=== PATIENT | female | born 1955 ===

== ENCOUNTER 2017-07-21 11:34 | Emergency (ER) | payer OTHER ==
[2017-07-21 12:09] VITALS: TEMP 98.3; BMI 21.2
--- NOTE | 2017-07-21 15:29 | PDOC ---
History of Present Illness <Jatinder Key - Last Filed: 07/21/17 16:18> - General History Source: Care Provider Exam Limitations: No Limitations - History of Present Illness Initial Comments: 07/21/17 16:25 Patient is a 62 year old female, from [facility], with a significant past medical history of seizures who presents to the ED s.p seizure that occurs just prior to ED arrival. As per care home staff, patient experienced an episode of seizure while in the opthamologist office prompting the [facility] to bring the patient into the ED for further evaluation. As per patient has not experienced a witness seizure since 2012. She reports patient was diagnosed with the flu earlier last week and just recently finished her prescription of tamiflu yesterday afternoon. Denies chest pain, Sob. Denies nausea, vomiting. Denies urinary incontinence.Denies fevers, chills. Denies trauma. Denies any other symptoms. Allergies: Haldol, Atterax Social history: Lives at [facility]. No smoking. No alcohol. No illicit drugs. Surgical history: None PMD: Dr. Klaus May. <Lino Mike - Last Filed: 07/21/17 16:25> - General Chief Complaint: Seizure Stated Complaint: SEIZURE Time Seen by Provider: 07/21/17 12:08 Past History - Past Medical History Cardiac Disorders: Yes (mi 2012) COPD: No Seizures: Yes Other medical history: mild intellectual disability, multiple fallliver cirrohis - Surgical History Cholecystectomy: Yes - Suicide/Smoking/Psychosocial Hx Smoking History: Unknown if ever smoked <Jatinder Key - Last Filed: 07/21/17 16:18> <Lino Mike - Last Filed: 07/21/17 16:25> - Past Medical History Allergies/Adverse Reactions: Allergies Allergy/AdvReac Type Severity Reaction Status Date / Time haloperidol [From Haldol] Allergy Unknown Verified 07/21/17 12:06 hydroxyzine [From Atarax] Allergy Verified 07/21/17 12:06 Home Medications: Ambulatory Orders Acetaminophen [Tylenol] 325 mg PO QID PRN 07/21/17 Aspirin 81 mg PO DAILY 07/21/17 Carbidopa/Levodopa [Carbidopa-Levodopa 25-100 Tab] 1 tab PO TID 07/21/17 Cholecalciferol (Vitamin D3) [Vitamin D3 -] 1,000 unit PO DAILY 07/21/17 Cyproheptadine [Periactin -] 4 mg PO BID 07/21/17 Denosumab [Prolia -] 60 mg IM UTDICT 07/21/17 Docusate Sodium [Colace] 100 mg PO DAILY 07/21/17 Guaifenesin [Mucinex] 600 mg PO BID 07/21/17 Lamotrigine [Lamictal] 300 mg PO BID 07/21/17 Oxybutynin [Oxytrol] 10 mg PO BID 07/21/17 Simvastatin [Zocor] 10 mg PO HS 07/21/17 Topiramate [Topamax] 100 mg PO BID 07/21/17 Review of Systems - Review of Systems Able to Perform ROS?: Yes Comments:: 07/21/17 16:25 ROS: A complete review of 10 out of 10 review of systems is taken and is negative apart from what is previously mentioned below and in the HPI. <Lino Mike - Last Filed: 07/21/17 16:25> *Physical Exam - Vital Signs Last Vital Signs Temp Pulse Resp BP Pulse Ox 98.3 F 79 20 115/63 97 07/21/17 11:35 07/21/17 13:38 07/21/17 13:38 07/21/17 13:38 07/21/17 13:38 <Jatinder Key - Last Filed: 07/21/17 16:18> - Vital Signs Last Vital Signs Temp Pulse Resp BP Pulse Ox 98.3 F 79 20 115/63 97 07/21/17 11:35 07/21/17 13:38 07/21/17 13:38 07/21/17 13:38 07/21/17 13:38 - Physical Exam Comments: 07/21/17 16:25 Vitals: Triage Vital signs reviewed General Appearance: no acute distress, well nourished well developed Head: Atraumatic Eyes: Pupils equal reactive round, extraocular movement intact Ears: TMs normal bilaterally Nose: Nares patent bilaterally; no nasal congestion Throat: Posterior oropharynx without erythema, mucous membranes moist Neck: Supple; No Nuchal rigidity Chest Wall: Nontender Cardiac: Regular rate and rhythm, no murmurs, no rubs, no gallops Lungs: Clear to auscultation bilateral, good air movement bilaterally Abdomen: Soft, non distended, normal bowel sounds, non tender to palpation Genitourinary: Rectal: Exam deferred Extremities: Full range of motion to all extremities, no cyanosis, clubbing, or edema Skin: Warm and dry, no rashes or lesions, no rash, no petechiae Neuro:Cranial Nerves 2-12 grossly intact, Strength intact to all extremities, Sensation intact to all extremities Psych: Normal mood, normal affect <Lino Mike - Last Filed: 07/21/17 16:25> ED Treatment Course - LABORATORY CBC & Chemistry Diagram: 07/21/17 15:00 07/21/17 15:00 <Jatinder Key - Last Filed: 07/21/17 16:18> - LABORATORY CBC & Chemistry Diagram: 07/21/17 15:00 07/21/17 15:00 - ADDITIONAL ORDERS Additional order review: Laboratory Results 07/21/17 15:00 Sodium 141 Potassium 4.4 Chloride 102 Carbon Dioxide 28 Anion Gap 11 BUN 18 Creatinine 0.7 Random Glucose 116 H Calcium 9.2 07/21/17 15:00 RBC 3.16 L MCV 92.5 MCHC 33.1 RDW 13.4 MPV 7.3 L Neutrophils % 83.3 H Lymphocytes % 9.3 Monocytes % 6.4 Eosinophils % 0.8 Basophils % 0.2 <Lino Mike - Last Filed: 07/21/17 16:25> Medical Decision Making - Medical Decision Making 07/21/17 16:18 62 years old multiple medical problems presents to the emergency department with generalized tonoclonic seizure. No changes patient medications recently was diagnosed with the flu Observe for [address] had labs all unremarkable diagnosis is breakthrough seizure likely secondary to recent flu Patient's care home has been provided with copy of CAT scan results and lab results and advised to follow up with neurology this week to will return to the emergency department for any severe returning symptoms or for any concerns. <Jatinder Key - Last Filed: 07/21/17 16:18> *DC/Admit/Observation/Transfer - Discharge Dispostion Admit: No <Jatinder Key - Last Filed: 07/21/17 16:18> - Attestations Scribe Attestion: 07/21/17 16:25 Documentation prepared by Lino Mike, acting as medical certification specialist for Jatinder Kye MD, /DO. <Lino Mike - Last Filed: 07/21/17 16:25> Diagnosis at time of Disposition: Seizure - Patient Instructions Printed Discharge Instructions: Seizure Disorder -- Adult Additional Instructions: Take all medications as prescribed. Follow-up with her neurologist this week. Return to the emergency department for any severe worsening symptoms or for any concerns.
[2017-07-21 15:32] LABS: ANION GAP 11 (8-16); BLOOD UREA NITROGEN 18 mg/dL (7-18); CALCIUM 9.2 mg/dL (8.5-10.1); CHLORIDE 102 mmol/L (98-107); CO2 28 mmol/L (21-32); CREATININE 0.7 mg/dL (0.55-1.02); GLUCOSE,RANDOM 116 mg/dL (74-106); POTASSIUM 4.4 mmol/L (3.5-5.1); SODIUM 141 mmol/L (136-145)
[2017-07-21 15:46] LABS: BASO % 0.2 % (0-2.0); EOS % 0.8 % (0-4.5); HEMATOCRIT 29.2 % (32.4-45.2); HEMOGLOBIN 9.7 GM/dL (10.7-15.3); LYMPH % 9.3 % (8-40); MCH 30.6 pg (25.7-33.7); MCHC 33.1 g/dl (32.0-36.0); MEAN CELL VOLUME 92.5 fl (80-96); MEAN PLT VOLUME 7.3 fl (7.5-11.1); MONO % 6.4 % (3.8-10.2); NEUT % 83.3 % (42.8-82.8); PLATELET COUNT 318 K/MM3 (134-434); RBC 3.16 M/mm3 (3.60-5.2); RDW 13.4 % (11.6-15.6); WHITE BLOOD COUNT 11.2 K/mm3 (4.0-10.0)
[2017-07-21 16:35] VITALS: BP 108/63; PULSE 83
--- NOTE | 2017-07-25 11:45 | EKG ---
Test Reason : Blood Pressure : / mmHG Vent. Rate : 069 BPM Atrial Rate : 069 BPM P-R Int : 194 ms QRS Dur : 134 ms QT Int : 440 ms P-R-T Axes : 059 -49 078 degrees QTc Int : 471 ms NORMAL SINUS RHYTHM LEFT AXIS DEVIATION NON-SPECIFIC INTRA-VENTRICULAR CONDUCTION BLOCK ABNORMAL ECG NO PREVIOUS ECGS AVAILABLE Confirmed by MD [place], Favio ([id number]) on 07/25/2017 11:44:31 AM Referred By: Confirmed By:Favio Mead MD
== END 2017-07-21 16:35 | disposition home or self-care (01) ==
LOC: JER 11:34
DX: R56.9 Unspecified convulsions (principal); F79 Unspecified intellectual disabilities
CPT/HCPCS: 36415; 70450-TC; 80048; 85025; 93005; 93010; 99284-25